=== PATIENT | male | born 1980 | race Caucasian/White ===

== ENCOUNTER 2025-03-03 11:27 | Inpatient (IN) | payer OTHER ==
[~2025-03-03] VITALS: Ht 182.9 cm; Wt 84.1 kg
[2025-03-03] MEDS: SODIUM CHLORIDE 0.9% 2,500 ML IV ONE (12:22)
[2025-03-03] MEDS: ACETAMINOPHEN 1000 MG/ISO-OSM 100 ML IV ONE (12:26)
[2025-03-03 12:31] LABS: BASOPHILS % (AUTO) 0.1 % (0.0-2.0); EOSINOPHILS % (AUTO) 0.2 % (1.0-6.0); HEMATOCRIT 40.6 % (41-53); HEMOGLOBIN 13.8 g/dL (13.5-17.5); LYMPHOCYTES # (AUTO) 1.4 K/uL (1.0-4.8); LYMPHOCYTES % (AUTO) 13.7 % (22.0-44.0); MEAN CORPUSCULAR HEMOGLOBIN 28.4 pg (26.0-34.0); MEAN CORPUSCULAR VOLUME 83 fL (80-100); MONOCYTES # (AUTO) 1.9 K/uL (0.1-1.0); MONOCYTES % (AUTO) 19.1 % (2.0-9.0); NEUTROPHILS # (AUTO) 6.7 K/uL (1.8-7.7); NEUTROPHILS % (AUTO) 66.9 % (40.0-70.0); PLATELET COUNT (AUTO) 213 K/uL (150-450); RED BLOOD CELL COUNT(AUTO) 4.87 MIL/uL (4.50-5.90); RED CELL DISTRIBUTION WIDTH 13.1 % (11.5-14.5); WHITE BLOOD COUNT (AUTO) 9.9 K/uL (4.5-11.0)
[2025-03-03] MEDS ORDERED: SODIUM CHLORIDE 0.9% 100 ML ONE (12:33)
[2025-03-03] MEDS ORDERED: IOHEXOL 350 MG/ML 100 ML VIAL ONE (12:33)
[2025-03-03 12:38] LABS: ANION GAP 7 mmol/L (8-16); CALCIUM, TOTAL 8.6 mg/dL (8.8-10.5); CARBON DIOXIDE 28 mmol/L (22-29); CHLORIDE 99 mmol/L (98-107); CREATININE 1.09 mg/dL (0.60-1.30); GLOMERULAR FILTR. RATE CALC > 60 mL/min (>60); GLUCOSE,RANDOM 92 mg/dL (70-110); POTASSIUM 4.1 mmol/L (3.5-5.1); SODIUM SERUM 134 mmol/L (136-145); UREA NITROGEN, BLOOD 14 mg/dL (7-18)
[2025-03-03 12:43] LABS: PROTHROMBIN TIME 10.8 SEC (9.4-11.6)
[2025-03-03 12:44] LABS: ALANINE AMINOTRANSFERASE 112 U/L (12-78); ALBUMIN 3.2 g/dL (3.4-5.0); ALKALINE PHOSPHATASE 155 U/L (46-116); ASPARTATE AMINOTRANSFERASE 110 U/L (15-37); BILIRUBIN,TOTAL 0.7 mg/dL (0.1-1.0); CREATINE KINASE, TOTAL ONLY 64 U/L (39-308); TOTAL PROTEIN, SERUM 6.9 g/dL (6.4-8.2)
[2025-03-03 12:48] LABS: TROPONIN I-HIGH SENSITIVITY 4 ng/L (<76)
[2025-03-03 12:50] LABS: B-TYPE NATRIURETIC PEPTIDE 10 pg/mL (0-100)
[2025-03-03 13:41] LABS: APPEARANCE,URINE CLEAR (CLEAR); BILIRUBIN,URINE NEGATIVE (NEGATIVE); COLOR,URINE YELLOW (YELLOW); GLUCOSE, URINE (UA) NEGATIVE (NEGATIVE); LEUKOCYTE ESTERASE ,URINE LARGE (NEGATIVE); NITRATE,URINE POSITIVE (NEGATIVE); OCCULT BLOOD,URINE SMALL (NEGATIVE); PROTEIN,URINE 30-70 mg/dL (NEGATIVE); SPECIFIC GRAVITIY, URINE > 1.030 (1.003-1.030); UROBILINOGEN,URINE <=1.0 mg/dL (<=1.0)
[2025-03-03 13:47] LABS: BACTERIA,URINE Moderate /HPF (None Seen)
[2025-03-03] MEDS: 0.9% SODIUM CHLORIDE 10 ML SYRINGE IVP PRN (13:47)
[2025-03-03] MEDS: CEFEPIME HCL 2 GM in DEXTROSE 5%-WATER 50 ML IV ONE (13:47)
[2025-03-03 14:15] LABS: COVID AG,FIA SOURCE NASAL SWAB
[2025-03-03 14:52] LABS: SARS-COV2 (COVID) ANTIGEN,FIA Negative (Negative)
[2025-03-03 14:53] LABS: INFLUENZA TYPE A NEGATIVE FOR TYPE A (NEGATIVE); INFLUENZA TYPE B NEGATIVE FOR TYPE B (NEGATIVE)
[2025-03-03] MEDS ORDERED: IPRA3AMP24 NEB (14:58)
[2025-03-03] MEDS ORDERED: RIVA20TA PO (14:58)
[2025-03-03] MEDS ORDERED: BUPR1FIL7 SL (14:58)
[2025-03-03] MEDS ORDERED: BACTDSB PO (14:58)
[2025-03-03] MEDS ORDERED: AMLO10TA55 PO (14:58)
[2025-03-03] MEDS ORDERED: OXCA600T19 PO (14:58)
[2025-03-03] MEDS ORDERED: DOCU100C34 PO (14:58)
[2025-03-03] MEDS ORDERED: DEXT1DRO OU (14:58)
[2025-03-03] MEDS ORDERED: FLUT1BLS10 IH (14:58)
[2025-03-03] MEDS ORDERED: TRIA10.8 NASAL (14:58)
[2025-03-03] MEDS ORDERED: MONT-35 PO (14:58)
[2025-03-03] MEDS ORDERED: BUPR1TAB32 SL (14:58)
[2025-03-03] MEDS ORDERED: LISI-662 PO (14:58)
[2025-03-03] MEDS ORDERED: POLY17PO62 PO (14:58)
[2025-03-03] MEDS ORDERED: EPIN0.3P3 IM (14:58)
[2025-03-03] MEDS ORDERED: LEVA15HF3 IH (14:58)
[2025-03-03] MEDS: BUPRENORPHINE HCL/NALOXONE HCL 2-0.5 MG SUBLINGUAL TABLET SL SCH (16:06)
[2025-03-03] MEDS: BUPRENORPHINE HCL/NALOXONE HCL 8-2 MG SUBLINGUAL TABLET SL SCH (16:06)
[2025-03-03 16:55] VITALS: BP 133/92; PULSE 74; RESP 18; TEMP 98.2; O2SAT 99
[2025-03-03] MEDS ORDERED: MAGNESIUM HYDROXIDE SUSPENSION 30 ML UDCUP PO PRN (18:30)
[2025-03-03] MEDS ORDERED: BISACODYL 10 MG RECTAL RECTAL SUPPOSITORY PR PRN (18:30)
[2025-03-03] MEDS ORDERED: ACETAMINOPHEN 325 MG TABLET PO PRN (18:30)
[2025-03-03] MEDS ORDERED: MORPHINE SULFATE 2 MG/ML SYRINGE IVP PRN (18:30)
[2025-03-03] MEDS ORDERED: ZOLPIDEM TARTRATE 5 MG TABLET PO PRN (18:30)
[2025-03-03] MEDS ORDERED: ONDANSETRON HCL 4 MG/2 ML VIAL IVP PRN (18:30)
[2025-03-03] MEDS ORDERED: HYDROCODONE/ACETAMINOPHEN 5-325 MG TABLET PO PRN (18:30)
[2025-03-03] MEDS: SODIUM CHLORIDE 0.9% 1,000 ML IV ONE (19:00)
[2025-03-03] MEDS ORDERED: DOCUSATE SODIUM 100 MG CAPSULE PO SCH (21:00)
[2025-03-04] MEDS ORDERED: HEPARIN SODIUM,PORCINE 5,000 UNITS/ML VIAL SQ SCH
[2025-03-04] MEDS ORDERED: MONTELUKAST SODIUM 10 MG TABLET PO SCH (09:00)
[2025-03-04] MEDS ORDERED: lisinopriL 20 MG TABLET PO SCH (09:00)
[2025-03-04] MEDS ORDERED: AmLODIPine BESYLATE 10 MG TABLET PO SCH (09:00)
[2025-03-04] MEDS ORDERED: PANTOPRAZOLE SODIUM 40 MG DR TABLET PO SCH (09:00)
[2025-03-04] MEDS ORDERED: RIVAROXABAN 20 MG TABLET PO SCH (18:00)
== END 2025-03-03 21:22 | disposition left against medical advice (07) | DRG 690 ==
LOC: EMS 11:27 → EDH 13:40 → 6S 16:34
PROVIDERS: ADMIT Internal Medicine; ATTEND Internal Medicine
DX: N10 Acute pyelonephritis (principal); E87.1 Hypo-osmolality and hyponatremia; F11.20 Opioid dependence, uncomplicated; J45.909 Unspecified asthma, uncomplicated; F31.9 Bipolar disorder, unspecified; Z20.822 Contact with and (suspected) exposure to COVID-19; Z53.21 Procedure and treatment not carried out due to patient leaving prior to being seen by health care provider; I10 Essential (primary) hypertension; J44.89 Other specified chronic obstructive pulmonary disease; Z91.010 Allergy to peanuts; Z86.711 Personal history of pulmonary embolism; Z86.718 Personal history of other venous thrombosis and embolism
CPT/HCPCS: 71045; 74177; 80048; 80076; 81001; 82550; 83605; 83735; 83880; 84145; 84484; 85025; 85610; 85730; 87040; 87077; 87086; 87186; 87804; 93005; 96365; 96367; 99285; J0131; J0692; J7030; J7050; J7060; 36415-L1; 36415-TC